=== PATIENT | male | born 1930 | race African-American/Black ===

== ENCOUNTER → 2016-11-17 | Outpatient (CLI) | payer MEDICARE ==
[2014-05-07 11:20] VITALS: BP 150/67
[~2016-11-17] MED LIST: ASPI325T11 PO
--- NOTE | 2016-11-17 11:33 | RAD ---
DATE: 11/17/2016. EXAM: DIGITAL DIAGNOSTIC LT. HISTORY: Personal history of right breast cancer status post right mastectomy. COMPARISON: 09/16/2015. This study was interpreted with the benefit of Computerized Aided Detection (CAD). FINDINGS: The breast parenchyma shows scattered fibroglandular densities. There is moderate to severe gynecomastia for male patient. The parenchymal pattern is stable. A few scattered calcifications appear benign. There are no suspicious masses, microcalcifications or architectural distortion. BI-RADS CATEGORY: 2 BENIGN FINDING(S). RECOMMENDED FOLLOW-UP: 12M 12 MONTH FOLLOW-UP. Ongoing left-sided surveillance could be performed in one year or as indicated. PQRS compliance statement: Patient information was entered into a reminder system with a target due date 11/17/2017 for the next mammogram. Mammography is a sensitive method for finding small breast cancers, but it does not detect them all and is not a substitute for careful clinical examination. A negative mammogram does not negate a clinically suspicious finding and should not result in delay in biopsying a clinically suspicious abnormality. "Our facility is accredited by the [employer] Mammography [employer]."
== END | disposition home or self-care (01) ==
LOC: MAMMO 10:27
PROVIDERS: ATTEND Internal Medicine Hematology & Oncology
DX: C50.921 Malignant neoplasm of unspecified site of right male breast (principal); Z85.3 Personal history of malignant neoplasm of breast
CPT/HCPCS: G0206; 77065

== ENCOUNTER → 2019-05-30 | Outpatient (CLI) | payer BC ==
[2014-05-07 11:20] VITALS: BP 150/67
--- NOTE | 2019-05-30 13:22 | RAD ---
DATE: 05/30/2019 12:43 PM EXAM: DIGITAL SCREEN LT W/CAD HISTORY: routine screening evaluation. History of right mastectomy for breast cancer. COMPARISON: 11/17/2016, 09/16/2015, 09/27/2014 Left full field craniocaudal and mediolateral oblique images were obtained using digital technique. This study was interpreted with the benefit of Computerized Aided Detection (CAD). FINDINGS: Breast Density: SCATTERED The breast parenchyma shows scattered fibroglandular densities. Breast parenchyma level B The parenchymal pattern appears stable. No suspicious masses, microcalcifications or architectural distortion is present to suggest malignancy in the left breast. The visualized axillae are unremarkable. IMPRESSION: No mammographic evidence of malignancy. BI-RADS CATEGORY: 1 NEGATIVE RECOMMENDED FOLLOW-UP: 12M 12 MONTH FOLLOW-UP Annual screening mammography is recommended, unless clinically indicated sooner based on symptoms or change in physical exam. PQRS compliance statement: Patient information was entered into a reminder system with a target due date for the next mammogram. Mammography is a sensitive method for finding small breast cancers, but it does not detect them all and is not a substitute for careful clinical examination. A negative mammogram does not negate a clinically suspicious finding and should not result in delay in biopsying a clinically suspicious abnormality. "Our facility is accredited by the [employer] Mammography [employer]."
== END | disposition home or self-care (01) ==
LOC: MAMMO 12:23
PROVIDERS: ATTEND Internal Medicine Hematology & Oncology
DX: Z12.31 Encounter for screening mammogram for malignant neoplasm of breast (principal); N64.89 Other specified disorders of breast; Z90.11 Acquired absence of right breast and nipple
CPT/HCPCS: 77067